=== PATIENT | male | born 1990 | race Caucasian/White ===

== ENCOUNTER → 2024-07-10 | Outpatient (CLI) | payer BC ==
[~2024-07-10] MED LIST: AMITRIPTYLINE H25 M2 PO; CLARITIN10 M1 PO; CYCLOBENZAPRINE10 M1 PO; MELOXICAM15 MG PO; NOVOLOG 100U100 U/ML SQ; PANTOPRAZOLE SO40 MG PO; PRAVASTATIN SOD10 MG PO; PROTONIX TR40 M1 PO; [UNRECOGNIZED DRUG - OTHER] MC
== END ==
LOC: LAB 09:49
DX: U07.1 COVID-19 (principal); J06.9 Acute upper respiratory infection, unspecified